=== PATIENT | female | born 1965 | race Caucasian/White ===

== ENCOUNTER 2020-01-24 21:32 | Emergency (ER) | payer OTHER, SELFPAY ==
[2020-01-24] MEDS ORDERED: Ketorolac Tromethamine 60 MG/2 ML VIAL ONE (22:01)
[2020-01-24] MEDS ORDERED: HYDROcodone/Acetaminophen 10/325 mg Tablet ONE (22:13)
[2020-01-24] MEDS ORDERED: Cyclobenzaprine 10 MG TAB ONE (22:13)
== END 2020-01-24 22:25 | disposition home or self-care (01) ==
LOC: MADERS 21:32
DX: M54.5 Low back pain (principal); Z79.899 Other long term (current) drug therapy
CPT/HCPCS: 96372; 99283; J1885

== ENCOUNTER 2021-07-13 14:19 | Outpatient (CLI) | payer BC | END 2021-07-13 14:20 | disposition home or self-care (01) | LOC: MADRAD 14:19 | PROVIDERS: ATTEND Orthopaedic Surgery | DX: M25.511 Pain in right shoulder (principal); M25.512 Pain in left shoulder ==

== ENCOUNTER 2022-01-10 08:37 | Outpatient (CLI) | payer BC | END 2022-01-10 08:38 | disposition home or self-care (01) | LOC: MADULT 08:37 | PROVIDERS: ATTEND Urology | DX: R31.29 Other microscopic hematuria (principal) | CPT/HCPCS: 76770 ==

== ENCOUNTER 2022-02-13 09:58 | Outpatient (CLI) | payer BC | END 2022-02-13 09:59 | disposition home or self-care (01) | LOC: MADRAD 09:58 | PROVIDERS: ATTEND Urology | DX: R31.29 Other microscopic hematuria (principal); N85.8 Other specified noninflammatory disorders of uterus | CPT/HCPCS: 76856 ==

== ENCOUNTER 2024-05-20 17:55 | Emergency (ER) | payer BC | END 2024-05-20 20:40 | disposition home or self-care (01) | LOC: MADERS 17:55 | DX: F41.9 Anxiety disorder, unspecified (principal); E78.00 Pure hypercholesterolemia, unspecified; Z79.899 Other long term (current) drug therapy | CPT/HCPCS: 99283 ==

== ENCOUNTER 2025-07-25 14:42 | Outpatient (CLI) | payer BC, OTHER | END 2025-07-25 14:43 | disposition home or self-care (01) | LOC: MADRAD 14:42 | PROVIDERS: ATTEND Family Medicine | DX: M79.672 Pain in left foot (principal) ==